=== PATIENT | male | born 1995 | race Caucasian/White ===

== ENCOUNTER 2017-11-26 12:26 | Emergency (ER) | payer OTHER ==
[~2017-11-26] VITALS: Ht 175.3 cm; Wt 74.6 kg
[2017-11-26 12:38] VITALS: BP 128/89
--- NOTE | 2017-11-26 12:45 | NUR ---
PT WHEEL CHAIR ASSISTED TO BED 6, REPORT GIVEN TO DOUG FLEMING Addendum: 11/26/17 at 1253 by MOO[facility] BED 7
--- NOTE | 2017-11-26 13:00 | NUR ---
PT. CAME INTO ED W C/O L FOOT PAIN. PT. STATES " I WAS RIDING MY SKATEBOARD 1 WEEK AGO I FELL AND ROLLED MY L FOOT IT HURT AND I KEPT SKATING UNTIL IT STARTED HURTING MORE, I DIDNT COME IN BECAUSE I THOUGHT IT WOULD GET BETTER BUT IT DIDNT" FOOT IS PURPLE AT 2 AND THIRD METATARSALS OF L FOOT, SENSATION INTACT, NO SWELLING NOTED, ABLE TO WIGGLE AND MOVE FOOT. PT. IS AAOX4, RR EVEN AND UNLABORED, PT. DENIES SOB, DENIES CHEST PAIN, DENIES HITTING HEAD. 10 PAIN SHARP NON RADIATING X 1 WEEK . ER MD NOTIFIED
--- NOTE | 2017-11-26 13:49 | NUR ---
XRAY AT BEDSIDE.
--- NOTE | 2017-11-26 13:50 | NUR ---
XRAY AT BEDSIDE
[2017-11-26 15:00] VITALS: BP 122/84
--- NOTE | 2017-11-26 15:00 | NUR ---
Patient discharged with v/s stable. Written and verbal after care instructions given and explained to parent/guardian. Parent/Guardian verbalized understanding of instructions. Ambulatory with steady gait. All questions addressed prior to discharge. ID band removed. Parent/Guardian advised to follow up with PMD. Rx of MOTRIN AND NORCO given. Parent/Guardian educated on indication of medication including possible reaction and side effects. Opportunity to ask questions provided and answered.
== END 2017-11-26 15:00 | disposition home or self-care (01) ==
LOC: MED 12:26
DX: S92.352A Displaced fracture of fifth metatarsal bone, left foot, initial encounter for closed fracture (principal); V00.131A Fall from skateboard, initial encounter; Y93.51 Activity, roller skating (inline) and skateboarding; Y99.8 Other external cause status; Y92.89 Other specified places as the place of occurrence of the external cause
CPT/HCPCS: 29515; 73610; 73630; 99284

== ENCOUNTER 2020-10-10 14:52 | Emergency (ER) | payer MEDICAID, OTHER ==
[~2020-10-10] VITALS: Ht 175.3 cm; Wt 76.2 kg
[2020-10-10 14:55] VITALS: BP 136/77
[2020-10-10] MEDS ORDERED: KETOROLAC 30 MG/ML VIAL IM ONE (15:40)
[2020-10-10] MEDS ORDERED: IBUP-1842 PO (15:43)
[2020-10-10 16:01] VITALS: BP 136/77
== END 2020-10-10 16:00 | disposition home or self-care (01) ==
LOC: MED 14:52
DX: S63.501A Unspecified sprain of right wrist, initial encounter (principal); J45.909 Unspecified asthma, uncomplicated; W19.XXXA Unspecified fall, initial encounter; Y93.89 Activity, other specified; Y92.89 Other specified places as the place of occurrence of the external cause; Y99.8 Other external cause status
CPT/HCPCS: 29125; 73110; 96372; 99283; J1885

== ENCOUNTER 2020-11-06 15:11 | Emergency (ER) | payer MEDICAID ==
[~2020-11-06] VITALS: Ht 175.3 cm; Wt 72.6 kg
[~2020-11-06 15:11] MED LIST: IBUP-1842 PO
[2020-11-06 15:34] VITALS: BP 146/124
--- NOTE | 2020-11-06 15:38 | NUR ---
Pt ambulated to ER bed 1 with a steady gait.
--- NOTE | 2020-11-06 15:41 | NUR ---
MARCO ANTONIO Cho at pt bedside for further evaluation.
--- NOTE | 2020-11-06 15:45 | NUR ---
Pt ELOPED against medical advice, made aware.
--- NOTE | 2020-11-06 15:46 | NUR ---
PATIENT ELOPED FROM FACILITY. DISCHARGE INSTRUCTIONS NOT GIVEN TO PATIENT. MARCO ANTONIO PETER NOTIFIED.
== END 2020-11-06 15:46 | disposition left against medical advice (07) ==
LOC: MED 15:11
DX: R53.1 Weakness (principal); R11.2 Nausea with vomiting, unspecified; J45.909 Unspecified asthma, uncomplicated
CPT/HCPCS: 99281

== ENCOUNTER 2021-02-10 17:11 | Emergency (ER) | payer MEDICAID ==
[~2021-02-10] VITALS: Ht 175.3 cm; Wt 81.6 kg
[2021-02-10 17:33] VITALS: BP 142/88
--- NOTE | 2021-02-10 18:23 | NUR ---
BIBS C/O RIGHT THUMB PAIN S/P LIFTING HIMSELF IN BED AND PT STATES HIS THUMB BENT BACKWARDS AND IS NOW CAUSING HIM 10/10 PAIN. NO DEFORMITY NOTED AT THIS TIME, SKIN IN TACT.
[2021-02-10] MEDS ORDERED: HYDROcodone/APAP 5/325 MG 1 TAB TAB PO ONE (18:35)
[2021-02-10] MEDS ORDERED: NAPR-54 PO (18:37)
--- NOTE | 2021-02-10 18:41 | NUR ---
pt placed in right velcro thumb spica splint, cms wnl before and after
[2021-02-10 18:44] VITALS: BP 142/88
== END 2021-02-10 18:45 | disposition home or self-care (01) ==
LOC: MED 17:11
DX: S63.601A Unspecified sprain of right thumb, initial encounter (principal); J45.909 Unspecified asthma, uncomplicated; Z79.899 Other long term (current) drug therapy; X58.XXXA Exposure to other specified factors, initial encounter; Y93.89 Activity, other specified; Y92.89 Other specified places as the place of occurrence of the external cause; Y99.8 Other external cause status
CPT/HCPCS: 73140; 99283

== ENCOUNTER 2023-05-28 09:40 | Emergency (ER) | payer MEDICAID, OTHER ==
[~2023-05-28] VITALS: Ht 167.6 cm; Wt 74.8 kg
[~2023-05-28 09:40] MED LIST changes: +NAPR-54 PO
[2023-05-28 09:52] VITALS: BP 126/76; PULSE 101; RESP 18; TEMP 98; O2SAT 98
[2023-05-28] MEDS ORDERED: IBUP-2213 PO (10:56)
[2023-05-28 11:06] VITALS: BP 126/76; PULSE 98; RESP 18; TEMP 98; O2SAT 98
== END 2023-05-28 11:11 | disposition home or self-care (01) ==
LOC: MED 09:40
DX: S63.592A Other specified sprain of left wrist, initial encounter (principal); W18.30XA Fall on same level, unspecified, initial encounter; Y93.51 Activity, roller skating (inline) and skateboarding; Y92.89 Other specified places as the place of occurrence of the external cause; Y99.8 Other external cause status
CPT/HCPCS: 73110; 73130; 99284

== ENCOUNTER 2023-06-22 10:50 | Emergency (ER) | payer OTHER ==
[~2023-06-22] VITALS: Ht 167.6 cm; Wt 72.6 kg
[~2023-06-22 10:50] MED LIST changes: +IBUP-2213 PO
[2023-06-22 11:17] VITALS: BP 146/86; PULSE 112; RESP 18; TEMP 98; O2SAT 98
== END 2023-06-22 12:42 | disposition home or self-care (01) ==
LOC: MED 10:50
DX: M67.432 Ganglion, left wrist (principal); J45.909 Unspecified asthma, uncomplicated; Z79.899 Other long term (current) drug therapy
CPT/HCPCS: 99281